=== PATIENT | male | born 1970 | race Caucasian/White ===

== ENCOUNTER 2018-12-23 10:07 | Emergency (ER) | payer OTHER ==
[~2018-12-23] VITALS: Ht 172.7 cm; Wt 98.2 kg
[2018-12-23 10:11] VITALS: PULSE 72; RESP 18; Ht 172.7 cm; Wt 98.2 kg
[2018-12-23 10:33] VITALS: BP 134/98
--- NOTE | 2018-12-23 10:33 | ERD ---
ER Documentation Chief Complaint Chief Complaint body weakness x 1 month HPI 48-year-old male states that he only sleeps about 4 hours a night because he works as a sanitation truck driver. Over the last month or so he had a generalized weakness and sleepiness. He was concerned because his blood pressure was noted to be high on the diastolic and this morning when he rechecked it. He had no chest pain or shortness of breath or palpitations. He had no headache, focal weakness numbness or difficulty speaking. He came to the emergency department for review of his blood pressure. Upon arrival he has no acute complaints. ROS All systems reviewed and are negative except as per history of present illness. Physical Exam Vitals Vital Signs Date Temp Pulse Resp B/P (MAP) Pulse Ox O2 O2 Flow FiO2 Time Delivery Rate 12/23/18 97.2 72 18 151/99 97 10:11 (116) Physical Exam GENERAL: The patient is well developed and appropriate for usual state of health in no apparent distress HEENT: Pupils equal, round, and reactive to light. EOMI. There is no scleral icterus. NECK: C-spine is soft and supple, there is no meningismus. There is no cervical lymphadenopathy. LUNGS: Clear to auscultation bilaterally. There are no rales, wheezes or rhonchi. HEART: Regular rate and rhythm, no murmurs, clicks, rubs or gallops. ABDOMEN: Soft, non-tender, non-distended. There are bowel sounds in all four qu adrants. No rebound or guarding. EXTREMITIES: There is no peripheral cyanosis or edema. No focal swelling or erythema. NEURO: The patient moves all four extremities with 5/5 strength. Cranial nerves II - XII are intact. Normal gait. Alert and oriented SKIN: There is no apparent rash or petechiae. HEME/LYMPHATIC: There is no evidence of excessive bruising or lymphedema. PSYCHIATRIC: The patient does not appear anxious or depressed. Procedures/MDM Patient was taken to a room, seen and examined Medical decision m[age]-year-old male presents the emergency department with concerns of his blood pressure. At this time, patient shows no evidence of hypertensive endorgan dysfunction. Patient appears to be clinically well after reassurance with a normal blood pressure and a normal blood sugar and seems to be appropriate for outpatient care. Departure Diagnosis: Primary Impression: Weakness Condition: Stable Patient Instructions: Generalized Weakness Additional Instructions: Please see your doctor this week to recheck your blood pressure. Return for any problems or concerns [id number] BAUM Dec 23, 2018 10:33
== END 2018-12-23 10:43 | disposition home or self-care (01) ==
LOC: E/R 10:07
DX: R53.1 Weakness (principal)
CPT/HCPCS: 82962; Z7502; 99282